=== PATIENT | male | born 1965 | race Caucasian/White ===

== ENCOUNTER 2020-06-16 16:28 | Inpatient (IN) ==
[2020-06-16] MEDS ORDERED: *HR* LORazepam 2 MG/ML VIAL IM PRN (18:47)
[2020-06-16] MEDS ORDERED: Mag Hydrox/Al Hydrox/Simeth 30 ML UDC PO PRN (18:47)
[2020-06-16] MEDS ORDERED: *HR* LORazepam 1 MG TABLET PO PRN (18:47)
[2020-06-16] MEDS ORDERED: Haloperidol Lactate 5 MG/ML VIAL IM PRN (18:47)
[2020-06-16] MEDS ORDERED: MOM Conc 10 ML UD.LIQ PO PRN (18:47)
[2020-06-16] MEDS ORDERED: traZODone 50 MG TABLET PO PRN (18:47)
[2020-06-16] MEDS ORDERED: haloperidoL 5 MG TABLET PO PRN (18:47)
[2020-06-16] MEDS ORDERED: Acetaminophen 325 MG TABLET PO PRN (18:47)
[2020-06-16] MEDS ORDERED: TESTOSTERONE CYPIONATE 200 MG IM SCH (19:00)
[2020-06-16] MEDS: hydrOXYzine pamoate 25 MG CAPSULE PO PRN (21:10)
[2020-06-17] MEDS: (Ezetimibe [Zetia] 10 MG) PO SCH (09:15)
[2020-06-17] MEDS: FLUoxetine 20 MG CAPSULE PO SCH (09:16)
[2020-06-17] MEDS: Nicotine 21 MG PATCH.TD24 TD SCH (09:17)
[2020-06-17] MEDS ORDERED: polyethylene glycoL 3350 17 GM POWD.PACK PO PRN (09:45)
[2020-06-17] MEDS: Gabapentin 400 MG CAPSULE PO SCH ×3 (14:37→20:52)
[2020-06-17] MEDS: BuPROPion XL (24 HR) 150 MG TABLET PO SCH (14:38)
[2020-06-17] MEDS: Cyanocobalamin (B-12) 1,000 MCG TABLET PO SCH (14:38)
[2020-06-17] MEDS: *HR* HYDROcodone/Acet 10/325 mg TABLET PO PRN ×2 (14:39→20:52)
[2020-06-17] MEDS: hydrOXYzine pamoate 25 MG CAPSULE PO PRN ×2 (14:39→20:53)
[2020-06-17] MEDS: Cholecalciferol (D-3) 1,000 UNIT (25MCG) TABLET PO SCH (14:40)
[2020-06-17] MEDS: traZODone 50 MG TABLET PO SCH (20:52)
[2020-06-18] MEDS: Cyanocobalamin (B-12) 1,000 MCG TABLET PO SCH (09:06)
[2020-06-18] MEDS: BuPROPion XL (24 HR) 150 MG TABLET PO SCH (09:07)
[2020-06-18] MEDS: Cholecalciferol (D-3) 1,000 UNIT (25MCG) TABLET PO SCH (09:07)
[2020-06-18] MEDS: FLUoxetine 20 MG CAPSULE PO SCH (09:07)
[2020-06-18] MEDS: Nicotine 21 MG PATCH.TD24 TD SCH (09:07)
[2020-06-18] MEDS: Gabapentin 400 MG CAPSULE PO SCH (09:07)
[2020-06-18] MEDS: *HR* HYDROcodone/Acet 10/325 mg TABLET PO PRN ×2 (09:13→15:58)
[2020-06-18] MEDS: (Ezetimibe [Zetia] 10 MG) PO SCH (09:26)
[2020-06-18] MEDS: Gabapentin 300 MG CAPSULE PO SCH ×2 (14:24→21:12)
[2020-06-18] MEDS: traZODone 50 MG TABLET PO SCH (21:12)
[2020-06-19] MEDS: *HR* HYDROcodone/Acet 10/325 mg TABLET PO PRN ×2 (00:06→09:01)
[2020-06-19] MEDS: hydrOXYzine pamoate 25 MG CAPSULE PO PRN (00:07)
[2020-06-19] MEDS: FLUoxetine 20 MG CAPSULE PO SCH (08:54)
[2020-06-19] MEDS: BuPROPion XL (24 HR) 150 MG TABLET PO SCH (08:54)
[2020-06-19] MEDS: Cyanocobalamin (B-12) 1,000 MCG TABLET PO SCH (08:54)
[2020-06-19] MEDS: Nicotine 21 MG PATCH.TD24 TD SCH (08:55)
[2020-06-19] MEDS: Gabapentin 300 MG CAPSULE PO SCH (08:55)
[2020-06-19] MEDS: Cholecalciferol (D-3) 1,000 UNIT (25MCG) TABLET PO SCH (08:57)
[2020-06-19] MEDS: (Ezetimibe [Zetia] 10 MG) PO SCH (09:16)
[2020-06-19 09:25] VITALS: BP 112/71
[2020-06-19] MEDS ORDERED: *HR* HYDROcodone/Acet 10/325 mg TABLET PO STA (12:12)
[2020-06-19] MEDS ORDERED: Gabapentin 400 MG CAPSULE PO SCH (15:00)
== END 2020-06-19 12:20 | disposition home or self-care (01) | DRG 885 ==
LOC: EMEROOARM 16:28 → 1ANU 18:28
PROVIDERS: ADMIT Psychiatry & Neurology Psychiatry; ATTEND Psychiatry & Neurology Psychiatry